=== PATIENT | male | born 1935 | race African-American/Black ===

== ENCOUNTER 2019-10-02 00:57 | Inpatient (IN) ==
[2019-10-02] MEDS ORDERED: Propofol 1,000 MG/100 ML VIAL IV ONE (01:12)
[2019-10-02 01:39] LABS: #Eosinphils 0.1 thou/uL (0.0-0.7); #Lymphocytes 1.5 thou/uL (1.20-3.40); #Monocytes 0.5 thou/uL (0.11-0.59); #Neutrophils 7.7 thou/uL (1.40-6.50); %Basophils 0.2 % (0.0-1.0); %Eosinophils 1.2 % (0.0-10.0); %Lymphocytes 14.8 % (21.0-51.0); %Monocytes 5.4 % (0.0-10.0); %Neutrophils 78.3 % (42.0-75.0); Hemoglobin 13.1 g/dL (14.0-18.0); Mean Corpuscular Hemoglobin 31.1 pg (27.0-31.0); Mean Platelet Volume 8.3 fL (7.4-10.4); Platelet Count 120 thou/uL (130-400); RBC Distribution Width 13.5 % (11.5-14.5); Red Blood Cell (RBC) Count 4.23 mill/uL (4.70-6.10); White Blood Cell (WBC) Count 9.9 thou/uL (4.8-10.8)
[2019-10-02 01:41] LABS: Actual Bicarbonate (HCO3a) 19.6 mEq/L (22-28); Analyzer IN Cardio ER; Base Excess (BEa) -5.6 mEq/L (-2.0 to +3.0); CO2 Tension 37.6 mmHg (35.0-45.0); Calcium, Ionized 1.13 mmol/L (1.12-1.30); Carboxyhemoglobin (COHb) 0.2 gm% (0.0-3.0); Hemoglobin (Hb) 12.8 g/dL (14.0-18.0); Potassium - ABG Lab 4.06 mmol/L (3.70-5.30); pH, Arterial 7.34 (7.35-7.45)
[2019-10-02 01:41] LABS: INR-International Normal Ratio 1.4; PTT 33.2 SEC (22.9-36.1)
[2019-10-02 01:43] LABS: Puncture Site RR
[2019-10-02] MEDS ORDERED: niCARdipine 25 MG in Sodium Chloride 0.9% 250 ML 240 ML IVPB PRN (01:46)
[2019-10-02] MEDS ORDERED: Labetalol HCl 100 MG/20 ML VIAL SLOW IVP PRN (01:46)
[2019-10-02 01:53] LABS: Bacteria/HPF 2+ HPF (None Seen); Bilirubin Negative (Negative); Blood, Urine 1+ (Negative); Clarity Clear (Clear); Glucose, Urine (Dipstick) Normal (Negative); Leukocyte Negative Leu/uL (Negative); Nitrite Negative (Negative); Protein, Urine (Dipstick) 30 mg/dL (Neg-Trace); Squamous Epithelial None Seen HPF (0-3); Urobilinogen Normal mg/dL (Less than 2)
[2019-10-02] MEDS ORDERED: Fentanyl 100 MCG/2 ML VIAL ONE (01:56)
[2019-10-02] MEDS ORDERED: fentaNYL Citrate/PF 2,000 MCG in Sodium Chloride 0.9% 60 ML IV SCH (01:56)
[2019-10-02] MEDS ORDERED: Sodium Chloride 0.9% 1,000 ML IV SCH (02:00)
[2019-10-02] MEDS ORDERED: Succinylcholine Chloride 20 MG/ML 10 ml SYRINGE FS ONE (02:36)
[2019-10-02 02:43] VITALS: BP 115/64
[2019-10-02 02:49] VITALS: BMI 26.2
--- NOTE | 2019-10-02 03:57 | CON ---
DATE OF CONSULTATION: 10/02/2019 HISTORY OF PRESENT ILLNESS: Mr. Quach is an 83-year-old gentleman who presented to [facility] ED with dizziness, weakness and unable to walk. At the emergency room, he had a blood pressure of 187/105, an abnormal gaze with a GCS score of 15. Mannitol was prescribed prior to transfer to [facility] Emergency room and his GCS score went down to a 13. The CT of the brain showed a lateral 2.3 cm intraparenchymal hemorrhage with hydrocephalus. Upon arrival at [facility] ED, his GCS score dropped down to 5. He was then intubated. A repeat CT of the brain was obtained. I spoke to Sy, Mr. Quach's who is coming in later tonight with her son because she has difficulty mobilizing. She states her had sudden dizziness and vomiting and was unable to walk, so she called 911. HOME MEDICATIONS: Metoprolol. PAST MEDICAL HISTORY: Hypertension, Parkinson's. PAST SURGICAL HISTORY: Cardiac stents. SOCIAL HISTORY: Unobtainable. REVIEW OF SYSTEMS: Prior to intubation: CONSTITUTION: Denies fear. Complains of chills and sweats. ENT: Denies change in vision or hearing. CARDIAC: Denies chest pain, shortness of breath, diaphoresis. PULMONARY: Denies shortness of breath, cough, hemoptysis. GI: Denies abdominal pain, diarrhea, change in stool formation, inconsistency. Complains of nausea and vomiting. SKIN: Denies skin rash, bruising, bleeding, skin masses. MUSCULOSKELETAL: Complains of weakness and unable to walk. NEUROLOGICAL: As per the history of present illness. PSYCHOLOGICAL: Denies anxiety, depression, or behavior changes. PHYSICAL EXAMINATION: HEAD: Face normocephalic, atraumatic. HEENT: Pupils are equal. Persistent left lateral gaze deviation. NECK: Soft, supple. No masses are noted. NEUROLOGICAL: The patient was intubated, unable to obtain. LABORATORY DATA: WBC 7.7, platelets , sodium 140, INR 1.3. CT of the brain: Lateral 2.3 cm intraparenchymal bleed, hemorrhage. Plan: I spoke to Sy, Mr. Quach's and stated based on the current CT of the brain, surgery is the only thing that could save his life. Surgery would not return his ability to walk independently. He would be most likely permanently incoordinated in the muscles used to keep him upright. There would be a 100% chance of being dependent on others and living in the fci. Sy tells me that her would not want any operation based on his age and would not want to live fci being dependent on other. She said her son will be picking her up around 2:00 a.m. and would like to see her hopefully before he passes away tonight. She stated that he does want him to be resuscitated, and would like to donate his body to research. 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 We will consult palliative Care. Job ID: [id number] [facility]
[2019-10-02 04:31] VITALS: TEMP 97.6
[2019-10-02] MEDS ORDERED: Morphine 4 MG/ML VIAL SLOW IVP PRN (05:30)
--- NOTE | 2019-10-02 08:11 | RAD ---
RADIOGRAPH CHEST 1 VIEW: DATE: 10/02/2019 TIME: 12:39 AM HISTORY: 83-year-old male with intracranial hemorrhage. Status post intubation. COMPARISON: 05/06/2019 FINDINGS: New endotracheal tube in mid thoracic trachea. New esophageal tube with side-port in left upper quadr ant. Interval increase in volume of left pleural effusion. Dense opacification of lower third of left visualized lung. New finding of diffuse pulmonary venous engorgement. New finding of mild nodula r interstitial densities centrally which could represent pulmonary interstitial edema. No pneumothorax identified, but this is a supine position which would be insensitive for pneumothorax de tection. IMPRESSION: 1. Status post intubation with endotracheal tube and esophagogastric tube. 2. Interval increase in left pleural effusion. 3. New dense consolidation of left lower lobe and probably of lingula. 4. New pulmonary venous congestion and probable pulmonary interstitial edema.
--- NOTE | 2019-10-02 08:42 | CT ---
PRELIMINARY REPORT/[facility]/EMERGENCY AFTER HOURS PROCEDURE Receipt of this report by the clinical staff was confirmed with Chrissie Marquez MD by Cielo Justice on October 02, 2019 02:01:00 CDT. Addendum electronically signed by Sandra Justice on October 02, 2019 2:02:02 AM CDT EXAM: CT BRAIN WO CON HISTORY: Intracranial hemorrhage COMPARISON: None FINDINGS: Evaluation is limited at the level of the temporal horns secondary to motion artifact. There is moderate hyperdense intraventricular hemorrhage within the right greater than left lateral v entricles, third ventricle and the fourth ventricle. There is associated hydrocephalus to include enlargement of the third and fourth ventricles. Basilar cisterns appear effaced. There is mild bilateral periventricular white matter hypodensities. Angel-white matter differentiation appears preserved. There is no evident sulcal effacement. No gross evidence for extra-axial hemorrhage. Paranasal sinuses and mastoids are clear. The contents of the orbits are symmetric across the midline. The calvarium is intact. No focal scalp swelling. IMPRESSION: Extensive moderate acute intraventricular hemorrhage with secondary obstructive hydrocephalus. Recom mend emergent neurosurgical consultation. ELECTRONICALLY SIGNED BY: Willy Lazo MD October 02, 2019 1:59:07 AM CDT This report is intended for review by the ordering physician only, in accordance of law. If you recei ve this report in error, please call [facility] at [phone]. FINAL REPORT Final report by Dr. Martinez Emergency after-hours study CT BRAIN NONCONTRAST: DATE: 10/02/2019 HISTORY: 83-year-old male with altered mental status and intracranial hemorrhage COMPARISON: 05/06/2019 FINDINGS: New finding of intracranial hemorrhage and obstructive hydrocephalus: Large intraventricular hematoma filling and expanding the fourth ventricle, and extending into the bilateral foramina of Luschka and foramen of Magendie. The fourth ventricular hematoma is contiguous with, and inseparable from jaqueline roximately 4 x 2.5 cm hematoma centered slightly to the right of midline in the cerebellum, and there is bilateral surrounding vasogenic edema in the cerebellum. Large intraventricular hematoma nisha ls and expands the third ventricle. Large intraventricular hematoma partially fills the moderately dilated right lateral ventricle. Smaller hematomas in the moderately dilated left lateral ventricle. Septum pellucidum is shifted to the left a distance of 10 mm because of the greater expansion of the right lateral ventricle compared to the left. Periventricular hypodensities represent chronic isc hemic white matter changes due to small vessel disease as demonstrated previously. However, this appears slightly worse, suggesting that there is also component of transependymal migration of CSF. N o subdural or epidural hematoma. No acute calvarial fracture. No major disagreement with preliminary report by [facility]. IMPRESSION: 1. Severe intraventricular hemorrhage causing significant obstructive hydrocephalus. 2. The source of the hemorrhage may be a right cerebellar intra-axial hematoma which has spilled into the fourth ventricle. Transcribed Date/Time: 10/02/2019 8:56 AM
[2019-10-02] MEDS ORDERED: Prevnar 13-Val Conj/PF 0.5 ML SYRINGE IM ONE (21:00)
--- NOTE | 2019-10-05 03:54 | PQF ---
TANYA MCCAULEY L GERARD MD [id number] CLINICAL DOCUMENTATION CLARIFICATION FORM: POST DISCHARGE Addendum to original discharge summary date: ____ Late entry note date: __ DATE: 10/05/2019 ATTN: Alec Phillip Please exercise your independent, professional judgment in responding to the clarification form. Clinical indicators are provided on the bottom of this form for your review Please check appropriate box(s) to clarify if the following diagnosis has been ruled in or ruled out: Respiratory failure: [ ] Ruled in diagnosis [ ] Continue to treat [ ] Resolved [ ] Ruled out diagnosis [ ] Cannot rule out diagnosis [ ] Other diagnosis [ ] Unable to determine Also, if Respiratory Failure was Ruled in, can you please specify acuity if:. [ ] Acute [ ] Chronic [ ] Acute on Chronic [ ] Unable to determine For continuity of documentation, please document condition throughout progress notes and discharge summary. Thank You. CLINICAL INDICATORS - SIGNS / SYMPTOMS / LABS Atrial blood gas 10/01 ph 7.34, pCO2 37.6, pO2 87.0, o2 sat 95.7, O2 content 17.2 Vital signs 10/01 BP 170/91, Pulse 95, Resp 30, Temp 94.3 ED notes p20 10/01 GCS 3' ED notes p21 10/01 Intracranial hemorrhage, Hypertensive emergency, Respiratory failure Chest Xray 10/01 Impression: dense consolidation of the left lower lobe Chest Xray 10/01 Impression: new pulmonary venous congestion and probable interstitial edema RISK FACTORS ED notes 83 year-old Male ED notes HTN ED notes Parkinson Disease TREATMENTS Respiratory Panel 10/01 Intubate on Mechanical Ventilator ABG 10/01 Chest Xray Collected 10/01 (This form is maintained as a part of the permanent medical record) 2014 [employer] All Rights Reserved [email or web address]
--- NOTE | 2019-10-05 03:55 | PQF ---
TANYA MCCAULEY L GERARD MD [id number] CLINICAL DOCUMENTATION CLARIFICATION FORM: POST DISCHARGE Addendum to original discharge summary date: ____ Late entry note date: __ DATE: 10/05/2019 ATTN: Alec Phillip Please exercise your independent, professional judgment in responding to the clarification form. Clinical indicators are provided on the bottom of this form for your review Please check appropriate box(s): [ ] Associated Diagnosis: Cerebral Edema [ ] Abnormal Radiology findings, not clinically significant [ ] Other diagnosis [ ] Unable to determine For continuity of documentation, please document condition throughout progress notes and discharge summary. Thank You. CLINICAL INDICATORS - SIGNS / SYMPTOMS/ LABS are present in the medical record: CT brain 10/01 there is bilateral surrounding vasogenic edema on cerebellum Vital signs 10/01 BP 170/91, Pulse 95, Resp 30, Temp 94.3 ED notes p20 10/01 GCS 3' ED notes p21 10/01 Intracranial hemorrhage, Hypertensive emergency, Respiratory failure RISK FACTORS ED notes 83 year-old Male ED notes HTN ED notes Parkinson Disease ED notes p21 10/01 - Intracranial hemorrhage, ED notes p21 10/01 - Respiratory failure TREATMENT Respiratory Panel 10/01 Intubate on Mechanical Ventilator CT brain 10/01 MAR 10/01 IV Morphine 4mg MAR 10/01 IV Labetalol 10mg (This form is maintained as a part of the permanent medical record) 2014 [employer] All Rights Reserved [email or web address]
== END 2019-10-02 06:23 | disposition expired | DRG 65 ==
LOC: ERS 00:57 → CCU 02:27
PROVIDERS: ADMIT Neurological Surgery; ATTEND Neurological Surgery
PROC: 5A1935Z Respiratory Ventilation, Less than 24 Consecutive Hours (ICD-10-PCS; principal; 2019-10-02)
PROC: 0BH17EZ Insertion of Endotracheal Airway into Trachea, Via Natural or Artificial Opening (ICD-10-PCS; 2019-10-02)
PROC: 0T9B70Z Drainage of Bladder with Drainage Device, Via Natural or Artificial Opening (ICD-10-PCS; 2019-10-02)
DX: I61.5 Nontraumatic intracerebral hemorrhage, intraventricular (principal); G91.9 Hydrocephalus, unspecified; Z66 Do not resuscitate; Z51.5 Encounter for palliative care; I10 Essential (primary) hypertension; R40.2312 Coma scale, best motor response, none, at arrival to emergency department; R40.2212 Coma scale, best verbal response, none, at arrival to emergency department; R40.2112 Coma scale, eyes open, never, at arrival to emergency department; G20 Parkinson's disease; Z79.899 Other long term (current) drug therapy; Z95.5 Presence of coronary angioplasty implant and graft; Z78.1 Physical restraint status
CPT/HCPCS: 31500; 51702; 70450; 71045; 81003; 81015; 82805; 85025; 85610; 85730; 87086; 94002; 96365; 96367; 96376; J2270; J2704; J3010; J3490